=== PATIENT | female | born 1960 | race Caucasian/White ===

== ENCOUNTER 2018-02-13 08:00 | Outpatient (CLI) | payer BC | END 2018-02-13 09:00 | disposition home or self-care (01) | LOC: D.MAMMO 08:00 | DX: Z12.31 Encounter for screening mammogram for malignant neoplasm of breast (principal) ==

== ENCOUNTER 2018-03-16 17:07 | Outpatient (CLI) | payer BC | END 2018-03-16 23:59 | disposition home or self-care (01) | LOC: D.MAMMO 17:07 | DX: R92.8 Other abnormal and inconclusive findings on diagnostic imaging of breast (principal) ==

== ENCOUNTER 2019-10-07 11:30 | Outpatient (CLI) | payer OTHER | END 2019-10-07 12:30 | disposition home or self-care (01) | LOC: D.MAMMO 11:30 | PROVIDERS: ATTEND Family Medicine | DX: Z12.31 Encounter for screening mammogram for malignant neoplasm of breast (principal) ==